=== PATIENT | male | born 1995 | race Caucasian/White ===

== ENCOUNTER 2023-03-27 00:02 | Emergency (ER) | payer OTHER, MEDICAID, SELFPAY ==
[2023-03-27 00:03] VITALS: BP 142/81; PULSE 92; RESP 16; TEMP 37.1; O2SAT 98; BMI 33.9
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
[2023-03-27 00:37] LABS: Ethanol < 10 mg/dL
[2023-03-27 01:09] VITALS: BP 125/79; PULSE 83; RESP 16; TEMP 37.3; O2SAT 98
[2023-03-27 01:30] LABS: Amphetamine Screen Urine Not Detected (Not Detect); Barbiturates, Urine Not Detected (Not Detect); Benzodiazepines Screen Urine Not Detected (Not Detect); Cannabinoid Screen Urine POSITIVE (Not Detect); Cocaine Screen Urine Not Detected (Not Detect); Fentanyl, urine Not Detected (Not Detect); Opiate Screen Urine Not Detected (Not Detect); Phencyclidine Screen Urine Not Detected (Not Detect)
== END 2023-03-27 01:39 | disposition home or self-care (01) ==
PROVIDERS: Emergency Provider Emergency Medicine
DX: Z04.2 Encounter for examination and observation following work accident (principal); Z02.83 Encounter for blood-alcohol and blood-drug test; F12.90 Cannabis use, unspecified, uncomplicated
CPT/HCPCS: 36415; 80307; 99283; 99284